=== PATIENT | male | born 1975 | race Two or more races ===

== ENCOUNTER 2022-06-27 03:53 | Inpatient (IN) | payer OTHER ==
[~2022-06-27] VITALS: Ht 175.3 cm; Wt 87.5 kg
== END 2022-07-03 21:12 | disposition home or self-care (01) | DRG 440 ==
LOC: ER 03:53 → MEDJ 20:04
PROVIDERS: ADMIT Internal Medicine; ATTEND Internal Medicine
PROC: BW21YZZ Computerized Tomography (CT Scan) of Abdomen and Pelvis using Other Contrast (ICD-10-PCS; principal; 2022-06-27)
DX: K85.80 Other acute pancreatitis without necrosis or infection (principal); R10.13 Epigastric pain